=== PATIENT | female | born 2000 | race Caucasian/White ===

== ENCOUNTER 2025-07-28 13:14 | Outpatient (CLI) | payer OTHER ==
[~2025-07-28] VITALS: Ht 175.3 cm; Wt 104.3 kg
[2025-07-28 12:19] VITALS: BP 112/73
[2025-07-28] MEDS ORDERED: PRENATAL TABLE1 EAC1 PO (13:17)
[2025-07-28] MEDS ORDERED: FOLIC ACID20 MG PO (13:17)
[2025-07-28 15:10] VITALS: BP 109/66
[2025-07-28 15:42] VITALS: BP 109/66
== END 2025-07-28 15:45 | disposition home or self-care (01) ==
LOC: OBS/DEL 13:14
PROVIDERS: ATTEND Specialist
DX: O26.893 Other specified pregnancy related conditions, third trimester (principal); Z3A.37 37 weeks gestation of pregnancy

== ENCOUNTER 2025-08-08 14:00 | Inpatient (IN) | payer OTHER ==
[~2025-08-08] VITALS: Ht 175.3 cm; Wt 104.3 kg
[~2025-08-08 14:00] MED LIST: FOLIC ACID20 MG PO; PRENATAL TABLE1 EAC1 PO
[2025-08-13] VITALS (9 sets, daily range): BP systolic 97–127; BP diastolic 61–80
[2025-08-13] MEDS ORDERED: OXYTOCIN 500 ML IV ONE (14:15)
[2025-08-13] MEDS ORDERED: RINGERS SOLUTION,LACTATED 1,000 ML IV SCH (14:15)
[2025-08-13 15:08] LABS: URINE APPEARANCE Cloudy; URINE BILIRRUBIN Negative (NEGATIVE); URINE BLOOD Large; URINE COLOR Dark Yellow; URINE GLUCOSE Negative (NEGATIVE); URINE KETONE Trace (NEGATIVE); URINE LEUKOCYTE Large; URINE NITRATE Negative; URINE PROTEIN Trace (NEGATIVE); URINE UROBILINOGEN 1.0 E.U./dl
[2025-08-13 15:11] LABS: URINE EPITHELIAL CELLS 134.6 uL (0.0-38.8); URINE RBC 109.4 uL (0.0-20.8); URINE WBC 165.9 uL (0.0-23.2)
[2025-08-13 15:45] LABS: BASO % 0.4 % (0.1-1.2); EOS # 0.03 (0.04-0.54); EOS % 0.4 % (0.7-7.0); LYMPH # 1.26 (1.18-3.74); LYMPH % 16.1 % (19.3-53.1); MEAN PLATELET VOLUME 10.20 fl (9.4-12.4); MONO # 0.56 (0.24-0.82); MONO % 7.1 % (4.7-12.5); NEUT # 5.93 (1.56-6.13); NEUT % 75.6 % (34.0-71.1); RED CELL DISTRIBUTION WIDTH 12.7 % (11.6-14.4)
[2025-08-13 15:53] LABS: INR 0.95
[2025-08-13 15:58] LABS: ALT/SGPT 15.0 U/L (12-78); AST/SGOT 15.0 U/L (15-37); BILIRUBIN TOTAL 0.39 mg/dL (0.3-1.2); BUN CREA RATIO 17.0 (7.0-25.0); CREATININE SERUM 0.54 mg/dL (0.55-1.02); GFR 136.47; GLOBULINA 3.7 G/DL (2.4-3.5); GLUCOSE FASTING 74.0 mg/dL (65-100); OSMOLALITY SERUM 280.0 MOSM/KG (275-295)
[2025-08-13 16:15] LABS: URINE CAST 0.00 uL (0.0-1.40)
[2025-08-13] MEDS ORDERED: LIDOCAINE HCL 1% 10ML VIAL ONE (19:31)
[2025-08-13] MEDS ORDERED: ERYTHROMYCIN BASE OPHT 1GM EACH TUBE OP ONE ×2 (19:31→21:15)
[2025-08-13] MEDS ORDERED: CHLORHEXIDINE GLUCONATE 120 ML BOTTLE TOP ONE (19:31)
[2025-08-13] MEDS ORDERED: OXYTOCIN 20 UNITS/1000ML RL PIGGYBAG IV ONE (19:31)
[2025-08-13] MEDS ORDERED: OXYTOCIN 1,000 ML IV SCH (21:00)
[2025-08-13] MEDS ORDERED: PNV,CALCIUM 72/IRON/FOLIC ACID 1 TAB TABLET PO SCH (21:00)
[2025-08-13] MEDS ORDERED: CHLORHEXIDINE GLUCONATE 120 ML BOTTLE TOP SCH (21:00)
[2025-08-13] MEDS ORDERED: LIDOCAINE HCL 1% 10ML VIAL IJ ONE (21:15)
[2025-08-14] VITALS: BP 115/77
[2025-08-14 04:11] LABS: BASO % 0.1 % (0.1-1.2); EOS # 0.00 (0.04-0.54); EOS % 0.0 % (0.7-7.0); LYMPH # 1.08 (1.18-3.74); LYMPH % 7.3 % (19.3-53.1); MEAN PLATELET VOLUME 10.00 fl (9.4-12.4); MONO # 0.80 (0.24-0.82); MONO % 5.4 % (4.7-12.5); NEUT # 12.87 (1.56-6.13); NEUT % 86.7 % (34.0-71.1); RED CELL DISTRIBUTION WIDTH 12.6 % (11.6-14.4)
[2025-08-14] MEDS ORDERED: PNV,CALCIUM 72/IRON/FOLIC ACID 1 TAB TABLET PO SCH (09:00)
[2025-08-14 09:57] VITALS: BP 113/76
[2025-08-14] MEDS ORDERED: FF) RHO(D) IMMUNE GLOBULIN (POM) IM ONE (14:15)
[2025-08-14 16:22] VITALS: BP 111/76
[2025-08-14 23:56] VITALS: BP 1263/70
[2025-08-15 08:25] VITALS: BP 112/71
== END 2025-08-15 14:26 | disposition home or self-care (01) | DRG 807 ==
LOC: OB/GYN 08-13 13:55 → LDR 08-13 13:55 → OB/GYN 08-13 21:01
PROVIDERS: General Practice; ADMIT Specialist; ATTEND Specialist
PROC: 10E0XZZ Delivery of Products of Conception, External Approach (ICD-10-PCS; principal; 2025-08-13)
PROC: 0UQG7ZZ Repair Vagina, Via Natural or Artificial Opening (ICD-10-PCS; 2025-08-13)
PROC: 4A1HXCZ Monitoring of Products of Conception, Cardiac Rate, External Approach (ICD-10-PCS; 2025-08-13)
DX: O71.4 Obstetric high vaginal laceration alone (principal); Z37.0 Single live birth; Z3A.39 39 weeks gestation of pregnancy